=== PATIENT | female | born 1955 | race Caucasian/White ===

== ENCOUNTER 2022-02-13 07:17 | Day surgery (SDC) | payer MEDICARE, BC ==
[~2022-02-13 07:17] MED LIST: Lactated Ringers 1,000 ML IV SCH; Sodium Chloride 0.9% 10 ML Syringe FLUSH PRN
[2022-02-13] MEDS ORDERED: Propofol 200 MG/20 ML SDV IV ONE (07:18)
[2022-02-13] MEDS ORDERED: Midazolam 1 MG/ML 2 ML SDV IV ONE (07:18)
== END 2022-02-13 09:50 | disposition home or self-care (01) ==
LOC: FB.SDS 07:17
PROVIDERS: ATTEND Surgery
DX: K29.80 Duodenitis without bleeding (principal); K21.9 Gastro-esophageal reflux disease without esophagitis; F32.A Depression, unspecified; I10 Essential (primary) hypertension; E11.9 Type 2 diabetes mellitus without complications; Z79.899 Other long term (current) drug therapy; Z79.4 Long term (current) use of insulin; Z98.890 Other specified postprocedural states; Z88.5 Allergy status to narcotic agent
CPT/HCPCS: 00731-QZ; 82947; 88305; J2250; J2704; J7120